=== PATIENT | female | born 1990 | race Caucasian/White ===

== ENCOUNTER 2016-11-30 20:48 | Outpatient (CLI) | payer MEDICAID ==
[2016-11-30] MEDS ORDERED: Sodium Chloride 0.9% 10 ML Syringe FLUSH PRN (21:46)
[2016-11-30] MEDS ORDERED: Lactated Ringers 1,000 ML IV ONE ×2 (21:46→22:00)
[2016-11-30] MEDS ORDERED: Sodium Chloride 0.9% 2.5 ML Syringe FLUSH PRN (21:46)
[2016-11-30] MEDS ORDERED: Terbutaline 1 MG/ML SDV SUBCUT ONE (23:48)
== END 2016-12-01 04:10 | disposition home or self-care (01) ==
LOC: MW.OBCHECK 20:48 → MW.OB 20:49 → MW.OBCHECK 12-01 04:10
PROVIDERS: ATTEND Obstetrics & Gynecology
DX: O26.899 Other specified pregnancy related conditions, unspecified trimester (principal)
CPT/HCPCS: 59025; 81003; 96360; 96361; 96372; J3105; J7120

== ENCOUNTER 2016-12-20 11:27 | Outpatient (CLI) | payer MEDICAID ==
[2016-12-20 12:03] VITALS: BP 121/65
[2016-12-20] MEDS ORDERED: Acetaminophen 500 MG Tab PO ONE (12:30)
--- NOTE | 2016-12-20 14:20 | US ---
EXAMINATION: Limited retroperitoneal ultrasound HISTORY: Left flank pain COMPARISON: None TECHNIQUE: Grayscale, color Doppler, and spectral Doppler images obtained. FINDINGS: There is an intrauterine noted with a heart rate of 160 bpm. The spleen appears borderline in size, otherwise unremarkable. The left kidney appears normal in size, contour, and ec hogenicity without evidence of hydronephrosis. Normal color Doppler flow. The left kidney measures a pproximately 12 cm [id number]. No abnormalities noted within the left lower quadrant. No free flui d. IMPRESSION: 1. Unremarkable left kidney. 2. No acute findings demonstrated.
== END 2016-12-20 14:45 | disposition home or self-care (01) ==
LOC: MW.OBCHECK 11:27 → MW.OB 13:49 → MW.OBCHECK 14:45
PROVIDERS: ATTEND Obstetrics & Gynecology
DX: O26.899 Other specified pregnancy related conditions, unspecified trimester (principal); R10.9 Unspecified abdominal pain
CPT/HCPCS: 59025; 76775; 81001; A9270

== ENCOUNTER 2017-01-05 14:19 | Outpatient (CLI) | payer MEDICAID | END 2017-01-05 15:58 | disposition home or self-care (01) | LOC: MW.OBCHECK 14:19 → MW.OB 14:21 → MW.OBCHECK 15:58 | PROVIDERS: ATTEND Obstetrics & Gynecology | DX: Z36 Encounter for antenatal screening of mother (principal); O36.8130 Decreased fetal movements, third trimester, not applicable or unspecified; O42.913 Preterm premature rupture of membranes, unspecified as to length of time between rupture and onset of labor, third trimester; Z3A.31 31 weeks gestation of pregnancy | CPT/HCPCS: 59025; 81003; 84112 ==

== ENCOUNTER 2017-01-13 20:56 | Outpatient (CLI) | payer MEDICAID | END 2017-01-13 23:30 | disposition home or self-care (01) | LOC: MW.OBCHECK 20:56 → MW.OB 21:01 → MW.OBCHECK 23:30 | PROVIDERS: ATTEND Obstetrics & Gynecology | DX: O99.89 Other specified diseases and conditions complicating pregnancy, childbirth and the puerperium (principal); M54.9 Dorsalgia, unspecified; Z3A.37 37 weeks gestation of pregnancy | CPT/HCPCS: 59025; 81003; 84112 ==

== ENCOUNTER 2017-01-21 15:29 | Outpatient (CLI) | payer MEDICAID | END 2017-01-21 18:40 | disposition home or self-care (01) | LOC: MW.OBCHECK 15:29 → MW.OB 15:31 → MW.OBCHECK 18:40 | PROVIDERS: ATTEND Obstetrics & Gynecology | DX: O26.893 Other specified pregnancy related conditions, third trimester (principal); Z3A.37 37 weeks gestation of pregnancy | CPT/HCPCS: 59025 ==

== ENCOUNTER 2017-01-27 05:01 | Inpatient (IN) | payer MEDICAID ==
[2017-01-27] MEDS ORDERED: Sodium Chloride 0.9% 10 ML Syringe FLUSH PRN (05:39)
[2017-01-27] MEDS ORDERED: Clindamycin Phosphate in D5W 900 MG in Premix Bag 1 BAG IV ONE ×2 (05:39)
[2017-01-27] MEDS ORDERED: Sodium Chloride 0.9% 2.5 ML Syringe FLUSH PRN (05:39)
[2017-01-27] MEDS ORDERED: Citric Acid/Sodium Citrate Solution 30 ML Cup PO SCH (05:45)
[2017-01-27] MEDS: Lactated Ringers 1,000 ML IV SCH ×3 (05:52→07:51)
[2017-01-27] MEDS ORDERED: Morphine PF 10 MG/10 ML SDV ONE (07:21)
[2017-01-27] MEDS ORDERED: Oxytocin 10 Units/1 ML SDV ONE ×2 (07:21→08:58)
--- NOTE | 2017-01-27 07:31 | PCM.PREANE ---
Preanesthetic Assessment - Procedure Proposed Procedure: #2 - Anesthesia/Transfusion/Family Hx Anesthesia History: Prior Anesthesia Without Reaction Family History of Anesthesia Reaction: No Transfusion History: No Prior Transfusion(s) Intubation History: Unknown - Review of Systems General: Other (Effects of ) Pulmonary: No Symptoms Cardiovascular: No Symptoms Gastrointestinal: Other (GERD of ) Neurological: Headache (Hx of migraine) Other: Reports: None - Physical Assessment Height: 5 ft 10 in Weight: 210 lb ASA Class: 2 Mental Status: Alert & Oriented x3 Airway Class: Mallampati = 1 Dentition: Reports: Normal Dentition Thyro-Mental Finger Breadths: 3 Mouth Opening Finger Breadths: 3 ROM/Head Extension: Full Lungs: Clear to auscultation, Normal respiratory effort Cardiovascular: Regular Rate, Regular Rhythm, No Murmurs - Lab Values: Laboratory Last Values WBC 7.36 K/uL (4.0-11.0) 01/27/17 05:40 RBC 4.35 M/uL (4.30-5.90) 01/27/17 05:40 Hgb 11.2 g/dL (12.0-16.0) L 01/27/17 05:40 Hct 34.5 % (36.0-46.0) L 01/27/17 05:40 MCV 79.3 fL (80.0-98.0) L 01/27/17 05:40 MCH 25.7 pg (27.0-32.0) L 01/27/17 05:40 MCHC 32.5 g/dL (31.0-37.0) 01/27/17 05:40 RDW Std Deviation 41.3 fl (28.0-62.0) 01/27/17 05:40 RDW Coeff of Kiran 15 % (11.0-15.0) 01/27/17 05:40 Plt Count 152 K/uL (150-400) 01/27/17 05:40 MPV 11.40 fL (7.40-12.00) 01/27/17 05:40 Nucleated RBC % 0.0 /100WBC 01/27/17 05:40 Nucleated RBCs # 0 K/uL 01/27/17 05:40 Blood Type A NEGATIVE 01/27/17 05:40 Antibody Screen NEGATIVE 01/27/17 05:40 - Allergies Allergies/Adverse Reactions: Allergies Allergy/AdvReac Type Severity Reaction Status Date / Time Penicillins Allergy Hives Verified 12/20/16 11:54 Sulfa (Sulfonamide Allergy Rash Verified 12/20/16 11:54 Antibiotics) - Blood Blood Available: Yes Product(s) Available: PRBC (T and S) - Anesthesia Plan Pre-Op Medication Ordered: Antacids - Acknowledgements Anesthesia Type Planned: Spinal Pt an Appropriate Candidate for the Planned Anesthesia: Yes Alternatives and Risks of Anesthesia Discussed w Pt/Guardian: Yes Pt/Guardian Understands and Agrees with Anesthesia Plan: Yes PreAnesthesia Questionnaire Gastrointestinal History: Reports: Other (see below) Other Gastrointestinal History: heartburn with Genitourinary History: Reports: None 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: , 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 Neurological History: Reports: Migraines - Past Surgical History Head Surgeries/Procedures: Reports: None HEENT Surgical History: Reports: Adenoidectomy, Myringotomy w tube(s) Female Surgical History: Reports: section, D&C, Other (see below) Other Female Surgeries/Procedures: hx hysteroscopy, D&C, Musculoskeletal Surgical History: Reports: Other (see below) Other Musculoskeletal Surgeries/Procedures:: hx bunionectomy - SUBSTANCE USE Smoking Status *Q: Never Smoker Recreational Drug Use History: No - HOME MEDS Home Medications: Home Meds Acetaminophen [Tylenol Extra Strength] 2 tab PO ASDIRECTED PRN 01/23/17 [History ] Vit W-Ca,Fe,FA(<1 mg) [ Vitamins] 1 tab PO DAILY 01/23/17 [ History] - CURRENT (IN HOUSE) MEDS Current Meds: Current Medications Citric Acid/Sodium Citrate (Bicitra Solution) 30 ml PO .ONCE RONEY Lactated Ringer's (Ringers, Lactated) 1,000 mls @ 500 mls/hr IV .BOLUS RONEY Last Admin: 01/27/17 07:26 Dose: 999 mls/hr Sodium Chloride (Saline Flush) 10 ml FLUSH ASDIRECTED PRN PRN Reason: Keep Vein Open Sodium Chloride (Saline Flush) 2.5 ml FLUSH ASDIRECTED PRN PRN Reason: Keep Vein Open Discontinued Medications Clindamycin Phosphate 900 mg/ (Premix) 50 mls @ 100 mls/hr IV ONETIME ONE Stop: 05/08/17 06:08 Morphine Sulfate (Duramorph Pf) Confirm Administered Dose 10 mg .ROUTE .STK-MED ONE Stop: 01/27/17 07:22 Oxytocin (Pitocin) Confirm Administered Dose 20 unit .ROUTE .STK-MED ONE Stop: 01/27/17 07:22
[2017-01-27] MEDS ORDERED: diphenhydrAMINE 50 MG/ML SDV IVPUSH PRN ×2 (08:43→08:51)
[2017-01-27] MEDS ORDERED: Naloxone 0.4 MG/ML Syringe IVPUSH PRN (08:43)
[2017-01-27] MEDS ORDERED: fentaNYL 100 MCG/2 ML SDV IVPUSH PRN (08:44)
[2017-01-27] MEDS ORDERED: Acetaminophen/oxyCODONE 325-5 MG Tab PO PRN ×3 (08:44→08:51)
[2017-01-27] MEDS ORDERED: Lanolin 100% Cream 7 GM Tube TOP PRN (08:51)
[2017-01-27] MEDS ORDERED: Bisacodyl 10 MG Supp RECTAL PRN (08:51)
[2017-01-27] MEDS ORDERED: Ibuprofen 800 MG Tab PO PRN (08:51)
[2017-01-27] MEDS ORDERED: Ondansetron 4 MG/2 ML SDV IV PRN (08:51)
[2017-01-27] MEDS ORDERED: Lactated Ringers 1,000 ML IV SCH (09:00)
--- NOTE | 2017-01-27 09:00 | PCM.OPNOTE ---
- General Post-Op/Procedure Note Date of Surgery/Procedure: 01/27/17 Operative Procedure(s): Repeat LTCS Findings: term male APGARs 8, 9 weight 4130 gm. Intact placenta with 3V cord. Normal appearing pelvis. Pre Op Diagnosis: 39 week IUP/Previous C section, desires repeat Post-Op Diagnosis: Same Anesthesia Technique: Spinal Primary Surgeon: Ana Alegria Fluid Replacement, Intraop: 2,000 Output, Urine Amount: 100 EBL in mLs: 700 Complications: None known Condition: Good Free Text/Narrative:: Dictation [id number]
--- NOTE | 2017-01-27 09:21 | PCM.POSTAN ---
POST ANESTHESIA ASSESSMENT - MENTAL STATUS Mental Status: alert, oriented - VITAL SIGNS Pulse Rate: 85 SaO2: 97 (Rm air) Resp Rate: 21 Blood Pressure: 122/73 - RESPIRATORY Respiratory Status: respiratory rate WNL, airway patent, O2 saturation stable - CARDIOVASCULAR CV Status: pulse rate WNL, blood pressure stable - GASTROINTESTINAL GI Status: nauseau (treated with odansetron; patient states she gets nausea with anxiety) - PAIN Pain Score: 0 (spinal still active) - POST OP HYDRATION Hydration Status: adequate & stable - OBSERVATIONS Free Text/Narrative:: Baby here for initial encounter; then transfer to the floor.
[2017-01-27] MEDS: Ketorolac 30 MG/ML SDV IVPUSH SCH ×3 (09:24→21:34)
[2017-01-27] MEDS: Docusate Sodium 100 MG Cap PO SCH ×2 (10:25→21:33)
[2017-01-27] MEDS: Nalbuphine 10 MG/1 ML Vial IVPUSH PRN ×2 (11:16→18:39)
--- NOTE | 2017-01-27 17:22 | OR ---
SURGEON: Ana Alegria M.D. DATE OF PROCEDURE: 01/27/2017 PREOPERATIVE DIAGNOSES: 1. A 39 weeks intrauterine . 2. Previous section desires repeat. POSTOPERATIVE DIAGNOSES: 1. A 39 weeks intrauterine . 2. Previous section desires repeat. PROCEDURE: Repeat low transverse section. ANESTHESIA: Spinal. ESTIMATED BLOOD LOSS: 700 mL. FLUIDS: 2000 mL of crystalloid. COMPLICATIONS: None. FINDINGS: Term male, Apgars 8 at 1 minute, 9 at 5 minutes. Weight of 4130 g. Intact placenta, three-vessel cord, delivered, normal appearing pelvis. DISPOSITION: Patient PACU stable, infant nursery, stable. PROCEDURE DETAILS: Jan is a 26-year-old, G4, P3-0-0-3, at 39 weeks' gestational age, who presents today for scheduled repeat delivery. The risks of the procedure have been discussed. Proper consent obtained. The patient was taken to the operating room where she underwent spinal anesthetic, was then placed in a supine position with leftward tilt. SCDs to lower extremities. Myrick to gravity. She was prepped and draped in usual sterile fashion. Time-out was performed. After anesthesia was tested and found to be adequate previous Pfannenstiel scar was now excised. Subcutaneous tissue was incised down to the level of the rectus fascia, which was incised in midline, lateralized on either side sharply and bluntly. The superior aspect of fascia was tented upward, dissected sharply and bluntly from underlying muscles. Similar aspect was performed at the inferior aspect of fascia. Rectus muscle in the midline. Peritoneum was entered and the rectus muscles lateralized bluntly as well as peritoneum. Uterine position and position palpated. Self-retaining retractor gently placed. Uterovesical reflection was visualized. Bladder flap created sharply and bluntly. Bladder was mobilized away from lower uterine segment. Low transverse hysterotomy was now performed and the uterine cavity was entered with blunt end of the scalpel. Hysterotomy was now lateralized bluntly. Artificial rupture of membranes revealed clear fluid. The infant's head was flexed and delivered from the pelvis. Fundal pressure was applied. The 's head was delivered followed by anterior shoulder push, remainder of the body delivered without difficulty. The infant's oropharynx and nares bulb suctioned. Cord clamped x2 and cut. was handed off to attending nursing staff. Cord arterial, cord venous, cord blood sampling was obtained. The placenta was now delivered. Uterine cavity was cleared of all clot and debris. Hysterotomy was repaired using 0 Vicryl in continuous running locked fashion followed by a re-imbricating layer. Two areas of bleeding in the midline of the incision was replicated with figure- of-eight sutures. The hemostasis was thereafter evident. Posterior aspect of the uterus was closely inspected. No defects or hematomas found to be forming. Region was well irrigated and suction dried. Uterus was returned to abdominal cavity. Colonic gutters were cleared of all clot and debris, well irrigated, and suction dried. Hysterotomy was again inspected and found to be hemostatic. Self-retaining retractor now gently removed. Bladder blade was placed. Hysterotomy once again inspected and found to be hemostatic. Uterus remained firm. Rectus muscle was reapproximated using 0 Vicryl with inverted mattress suture technique. Anterior aspect of the muscle and posterior aspect of the fascia closely inspected. Any areas of oozing were cauterized. Rectus fascia was reapproximated using 0 Vicryl in continuous running fashion beginning laterally on either side meeting in the midline. Subcutaneous tissue was now well irrigated and suction dried. Any areas of oozing were cauterized. Skin edges were reapproximated using 3-0 Vicryl on a Jadiel needle in subcuticular fashion and the incision now reimbricated with 1/2-inch Steri- Strips and Mastisol. Uterus remained firm. Sponge, instrument, and needle counts correct x2. The patient has tolerated the procedure well overall. She will go to PACU in stable condition and to nursery. SAMIA / BERT /[id number]
[2017-01-28] MEDS: Ketorolac 30 MG/ML SDV IVPUSH SCH ×2 (04:20→09:53)
--- NOTE | 2017-01-28 07:56 | PCM.PNPP ---
- General Info Date of Service: 01/28/17 Subjective Update: Patient has been ambulating halls, scanlon just removed. She notes pain is controlled. Lochia is minimal. Functional Status: Reports: pain controlled, tolerating diet, ambulating - Review of Systems General: Denies: Fever Pulmonary: Denies: shortness of breath Cardiovascular: Denies: Chest Pain, Palpitations, Lightheadedness Gastrointestinal: Reports: Abdominal pain (incisional, well controlled). Denies : Nausea, Vomiting Genitourinary: Denies: flank pain Neurological: Reports: No Symptoms Psychiatric: Reports: no symptoms - General Info Date of Service: 01/28/17 - Patient Data Vital Signs - most recent: Last Vital Signs Temp 36.3 C 01/28/17 04:00 Pulse 69 01/28/17 04:00 Resp 15 01/28/17 06:00 BP 110/53 L 01/28/17 04:00 Pulse Ox 98 01/28/17 06:00 Weight - most recent: 95.254 kg I&O - last 24 hours: Intake & Output 01/27/17 01/28/17 01/28/17 22:59 06:59 14:59 Output Total 450 1100 Balance -450 -1100 Lab Results - last 24 hrs: Laboratory Results - last 24 hr 01/27/17 01/28/17 Range/Units 09:47 05:32 Hgb 10.0 L (12.0-16.0) g/dL Hct 31.4 L (36.0-46.0) % Screen NEGATIVE RhIG Candidate? YES Rhogam Indicated YES, BABY RH POS H Med Orders - Current: Current Medications Bisacodyl (Dulcolax) 10 mg RECTAL .ONCE PRN PRN Reason: Constipation Citric Acid/Sodium Citrate (Bicitra Solution) 30 ml PO .ONCE RONEY Last Admin: 01/27/17 07:53 Dose: 30 ml Diphenhydramine HCl (Benadryl) 25 mg IVPUSH Q4H PRN PRN Reason: Itching Stop: 01/28/17 08:44 Last Admin: 01/27/17 10:25 Dose: 25 mg Diphenhydramine HCl (Benadryl) 25 mg IVPUSH Q6H PRN PRN Reason: Itching or Nausea Docusate Sodium (Colace) 100 mg PO BID [facility] Last Admin: 01/27/17 21:33 Dose: 100 mg Emollient Ointment (Lansinoh Hpa) 0 gm TOP ASDIRECTED PRN PRN Reason: Sore Nipples Fentanyl (Sublimaze) 25 - 50 mcg IVPUSH Q30M PRN PRN Reason: Pain Lactated Ringer's (Ringers, Lactated) 1,000 mls @ 500 mls/hr IV .BOLUS [facility] Last Admin: 01/27/17 07:51 Dose: 999 mls/hr Lactated Ringer's (Ringers, Lactated) 1,000 mls @ 125 mls/hr IV ASDIRECTED [facility] Last Admin: 01/27/17 15:36 Dose: 125 mls/hr Ibuprofen (Motrin) 800 mg PO Q8H PRN PRN Reason: mild pain or fever Ketorolac Tromethamine (Toradol) 30 mg IVPUSH Q6H [facility] Stop: 01/28/17 09:01 Last Admin: 01/28/17 04:20 Dose: 30 mg Nalbuphine HCl (Nubain) 5 mg IVPUSH Q3H PRN PRN Reason: Pruritis Stop: 01/28/17 08:44 Last Admin: 01/27/17 18:39 Dose: 5 mg Naloxone HCl (Narcan) 0.1 mg IVPUSH ONETIME PRN PRN Reason: Other Stop: 01/28/17 08:44 Ondansetron HCl (Zofran) 4 mg IV Q4H PRN PRN Reason: Nausea/Vomiting Last Admin: 01/27/17 09:22 Dose: 4 mg Oxycodone/Acetaminophen (Percocet 325-5 Mg) 1 tab PO Q4H PRN PRN Reason: Pain (moderate 4-6) Oxycodone/Acetaminophen (Percocet 325-5 Mg) 2 tab PO Q4H PRN PRN Reason: Pain (moderate 4-6) Sodium Chloride (Saline Flush) 10 ml FLUSH ASDIRECTED PRN PRN Reason: Keep Vein Open Sodium Chloride (Saline Flush) 2.5 ml FLUSH ASDIRECTED PRN PRN Reason: Keep Vein Open Discontinued Medications Clindamycin Phosphate 900 mg/ (Premix) 50 mls @ 100 mls/hr IV ONETIME ONE Stop: 01/27/17 06:08 Last Admin: 01/27/17 07:43 Dose: 100 mls/hr Ibuprofen (Motrin) 800 mg PO Q8H PRN PRN Reason: mild pain or fever Morphine Sulfate (Duramorph Pf) Confirm Administered Dose 10 mg .ROUTE .STK-MED ONE Stop: 01/27/17 07:22 Oxytocin (Pitocin) Confirm Administered Dose 20 unit .ROUTE .STK-MED ONE Stop: 01/27/17 07:22 Oxytocin (Pitocin) Confirm Administered Dose 20 unit .ROUTE .STK-MED ONE Stop: 01/27/17 08:59 - Interaction Disposition, : [place] in Room with Family Support Person: - Recovery Exam Fundal Tone: Firm Fundal Level: 1 Fingerbreadths Below Umbilicus Fundal Placement: Midline Lochia Amount: Scant Lochia Color: Rubra/Red Perineum Description: Intact, Minimal Bruising/Swelling Episiotomy/Laceration: None Bladder Status: Indwelling Catheter in Place Urinary Elimination: Other (see below) Other Urinary Elimination, : Indwelling catheter removed, not yet voided - Exam General: alert, oriented Lungs: Normal respiratory effort Cardiovascular: Regular Rate, Regular Rhythm Abdomen: bowel sounds present, soft. No: CVA tenderness Extremities: no calf tenderness Skin: warm, dry, intact Psy/Mental Status: alert, normal affect - Problem List & Annotations (1) delivery delivered SNOMED Code(s): 876640538 Code(s): O82 - ENCOUNTER FOR DELIVERY WITHOUT INDICATION Status: Acute Current Visit: Yes - Problem List Review Problem List Initiated/Reviewed/Updated: Yes - My Orders Last 24 Hours: My Active Orders 01/27/17 08:51 Ambulate [RC] PER UNIT ROUTINE Communication Order [RC] PER UNIT ROUTINE Communication Order [RC] PER UNIT ROUTINE Communication Order [RC] Per Unit Routine May Shower [RC] ASDIRECTED Notify Provider Intake and Out [RC] ASDIRECTED Notify Provider Vital Signs [RC] ASDIRECTED RT Incentive Spirometry [RC] Q2HWA Vital Signs [RC] PER UNIT ROUTINE Acetaminophen/oxyCODONE [Percocet 325-5 MG] 1 tab PO Q4H PRN Acetaminophen/oxyCODONE [Percocet 325-5 MG] 2 tab PO Q4H PRN Bisacodyl [Dulcolax] 10 mg RECTAL .ONCE PRN Lanolin [Lansinoh HPA] See Dose Instructions TOP ASDIRECTED PRN Ondansetron [Zofran] 4 mg IV Q4H PRN diphenhydrAMINE [Benadryl] 25 mg IVPUSH Q6H PRN Abdominal Binder [OM.PC] Routine Assess Lochia [WOMSER] Per Unit Routine Assess Uterine Involution [WOMSER] Per Unit Routine Breast Pump [WOMSER] Per Unit Routine Heat Therapy [OM.PC] Routine Ice Therapy [OM.PC] Routine Peripheral IV Discontinue [OM.PC] Routine Sequential Compression Device [OM.PC] Per Unit Routine 01/27/17 08:52 Antiembolic Devices [RC] PER UNIT ROUTINE 01/27/17 09:00 Docusate Sodium [Colace] 100 mg PO BID Ketorolac [Toradol] 30 mg IVPUSH Q6H Lactated Ringers [Ringers, Lactated] 1,000 ml IV ASDIRECTED 01/27/17 09:47 SCREEN [BBK] Routine RH IMMUNE GLOBULIN [BBK] Routine RHOGAM, [RHIG WORKUP, ] [BBK] Routine 01/27/17 Lunch Regular Diet [DIET] 01/28/17 15:00 Ibuprofen [Motrin] 800 mg PO Q8H PRN - Assessment Assessment:: POD 1 status post repeat C section - Plan Plan:: Doing well overall, continue postoperative/ cares. Ambulate halls and may shower today.
[2017-01-28] MEDS: Docusate Sodium 100 MG Cap PO SCH (09:52)
--- NOTE | 2017-01-28 10:31 | PCM48HPAN ---
Post Anesthesia Note - EVALUATION WITHIN 48HRS OF ANESTHETIC Vital Signs in Normal Range: Yes Patient Participated in Evaluation: Yes Respiratory Function Stable: Yes Airway Patent: Yes Cardiovascular Function Stable: Yes Hydration Status Stable: Yes Pain Control Satisfactory: Yes Nausea and Vomiting Control Satisfactory: Yes Mental Status Recovered: Yes
[2017-01-28] MEDS ORDERED: Ibuprofen 800 MG Tab PO PRN (15:00)
[2017-01-28 17:15] VITALS: BP 114/55
--- NOTE | 2017-01-28 18:16 | PCM.PNPP ---
- General Info Date of Service: 01/28/17 Functional Status: Reports: pain controlled, tolerating diet, ambulating, urinating, other (she requests discharge this evening, she has her mother and to help her, older kids will be going to [place] with her mom this weekend and would like to be able to spend time with them.) - Review of Systems General: Reports: No Symptoms HEENT: Reports: no symptoms Pulmonary: Reports: no symptoms Cardiovascular: Reports: No Symptoms Gastrointestinal: Reports: No symptoms Genitourinary: Reports: no symptoms Musculoskeletal: Reports: no symptoms Skin: Reports: no symptoms Neurological: Reports: No Symptoms Psychiatric: Reports: no symptoms - Patient Data Vital Signs - most recent: Last Vital Signs Temp 36.5 C 01/28/17 17:00 Pulse 92 01/28/17 17:00 Resp 16 01/28/17 17:00 BP 114/55 L 01/28/17 17:00 Pulse Ox 100 01/28/17 17:00 Weight - most recent: 95.254 kg I&O - last 24 hours: Intake & Output 01/28/17 01/28/17 01/28/17 06:59 14:59 22:59 Output Total 1100 500 Balance -1100 -500 Lab Results - last 24 hrs: Laboratory Results - last 24 hr 01/28/17 Range/Units 05:32 Hgb 10.0 L (12.0-16.0) g/dL Hct 31.4 L (36.0-46.0) % Med Orders - Current: Current Medications Bisacodyl (Dulcolax) 10 mg RECTAL .ONCE PRN PRN Reason: Constipation Citric Acid/Sodium Citrate (Bicitra Solution) 30 ml PO .ONCE [facility] Last Admin: 01/27/17 07:53 Dose: 30 ml Diphenhydramine HCl (Benadryl) 25 mg IVPUSH Q6H PRN PRN Reason: Itching or Nausea Docusate Sodium (Colace) 100 mg PO BID [facility] Last Admin: 01/28/17 09:52 Dose: 100 mg Emollient Ointment (Lansinoh Hpa) 0 gm TOP ASDIRECTED PRN PRN Reason: Sore Nipples Fentanyl (Sublimaze) 25 - 50 mcg IVPUSH Q30M PRN PRN Reason: Pain Lactated Ringer's (Ringers, Lactated) 1,000 mls @ 500 mls/hr IV .BOLUS [facility] Last Admin: 01/27/17 07:51 Dose: 999 mls/hr Lactated Ringer's (Ringers, Lactated) 1,000 mls @ 125 mls/hr IV ASDIRECTED [facility] Last Admin: 01/27/17 15:36 Dose: 125 mls/hr Ibuprofen (Motrin) 800 mg PO Q8H PRN PRN Reason: mild pain or fever Ondansetron HCl (Zofran) 4 mg IV Q4H PRN PRN Reason: Nausea/Vomiting Last Admin: 01/27/17 09:22 Dose: 4 mg Oxycodone/Acetaminophen (Percocet 325-5 Mg) 1 tab PO Q4H PRN PRN Reason: Pain (moderate 4-6) Oxycodone/Acetaminophen (Percocet 325-5 Mg) 2 tab PO Q4H PRN PRN Reason: Pain (moderate 4-6) Sodium Chloride (Saline Flush) 10 ml FLUSH ASDIRECTED PRN PRN Reason: Keep Vein Open Sodium Chloride (Saline Flush) 2.5 ml FLUSH ASDIRECTED PRN PRN Reason: Keep Vein Open Discontinued Medications Diphenhydramine HCl (Benadryl) 25 mg IVPUSH Q4H PRN PRN Reason: Itching Stop: 01/28/17 08:44 Last Admin: 01/27/17 10:25 Dose: 25 mg Clindamycin Phosphate 900 mg/ (Premix) 50 mls @ 100 mls/hr IV ONETIME ONE Stop: 01/27/17 06:08 Last Admin: 01/27/17 07:43 Dose: 100 mls/hr Ibuprofen (Motrin) 800 mg PO Q8H PRN PRN Reason: mild pain or fever Ketorolac Tromethamine (Toradol) 30 mg IVPUSH Q6H [facility] Stop: 01/28/17 09:01 Last Admin: 01/28/17 09:53 Dose: 30 mg Morphine Sulfate (Duramorph Pf) Confirm Administered Dose 10 mg .ROUTE .STK-MED ONE Stop: 01/27/17 07:22 Nalbuphine HCl (Nubain) 5 mg IVPUSH Q3H PRN PRN Reason: Pruritis Stop: 01/28/17 08:44 Last Admin: 01/27/17 18:39 Dose: 5 mg Naloxone HCl (Narcan) 0.1 mg IVPUSH ONETIME PRN PRN Reason: Other Stop: 01/28/17 08:44 Oxytocin (Pitocin) Confirm Administered Dose 20 unit .ROUTE .STK-MED ONE Stop: 01/27/17 07:22 Oxytocin (Pitocin) Confirm Administered Dose 20 unit .ROUTE .STK-MED ONE Stop: 01/27/17 08:59 - Infant Interaction Disposition, : in Room with Family Support Person: - Recovery Exam Fundal Tone: Firm Fundal Level: 1 Fingerbreadths Below Umbilicus Fundal Placement: Midline Lochia Amount: Scant Lochia Color: Rubra/Red Perineum Description: Intact, Minimal Bruising/Swelling Episiotomy/Laceration: None Bladder Status: Indwelling Catheter in Place Urinary Elimination: Other (see below) Other Urinary Elimination, : Indwelling catheter removed, not yet voided - Exam General: alert, oriented HEENT: Pupils equal Neck: supple Lungs: Clear to auscultation, Normal respiratory effort Cardiovascular: Regular Rate, Regular Rhythm Abdomen: bowel sounds present, soft, no tenderness, no distension Extremities: no edema Skin: warm, dry, intact Wound/Incisions: healing well Neurological: no new focal deficit Psy/Mental Status: alert, normal affect, normal mood - Problem List Review Problem List Initiated/Reviewed/Updated: Yes - My Orders Last 24 Hours: My Active Orders 01/28/17 18:12 Ready for Discharge [RC] PER UNIT ROUTINE - Assessment Assessment:: POD 1 status post repeat C section stable, would like to be discharged to home, she has good support, she has voided and had a bowel movement tolerating diet, has not been using pain meds today,, although she now would like one. - Plan Plan:: Discharge instructions reviewed, precautions given, she will follow up in [address] Alegria.
== END 2017-01-28 20:50 | disposition home or self-care (01) | DRG 766 ==
LOC: MW.OB 05:01
PROVIDERS: ADMIT Obstetrics & Gynecology; ATTEND Obstetrics & Gynecology
PROC: 10D00Z1 Extraction of Products of Conception, Low, Open Approach (ICD-10-PCS; principal; 2017-01-27)
DX: O34.211 Maternal care for low transverse scar from previous cesarean delivery (principal); Z3A.39 39 weeks gestation of pregnancy; Z37.0 Single live birth
CPT/HCPCS: 01961; 36415; 59025; 85014; 85018; 85027; 85460; 86850; 86900; 86901; A9270-GY; J1200; J1885; J2270; J2300; J2405; J2590; J2790; J7120